=== PATIENT | male | born 1940 | race Caucasian/White ===

== ENCOUNTER 2024-08-23 03:43 | Emergency (ER) | payer OTHER ==
[~2024-08-23] VITALS: Ht 180.3 cm; Wt 80.7 kg
[2024-08-23 03:51] VITALS: BP_SYST 174; PULSE 98; RESP 20; TEMP 98; O2SAT 98
[2024-08-23 04:23] LABS: BASOPHILS % (AUTO) 0.4 % (0.0-2.0); EOSINOPHILS # (AUTO) 0.2 K/uL (0.0-0.4); EOSINOPHILS % (AUTO) 3.7 % (0.0-4.0); HEMATOCRIT 39.9 % (36-54); HEMOGLOBIN 13.6 g/dL (14.0-18.0); LYMPHOCYTES # (AUTO) 0.8 K/uL (1.0-5.5); LYMPHOCYTES % (AUTO) 12.6 % (20.5-51.5); MEAN CORPUSCULAR HEMOGLOBIN 32 pg (27-31); MEAN CORPUSCULAR HGB CONC 34 % (32-36); MEAN CORPUSCULAR VOLUME 94 fL (79.0-98.0); MONOCYTES # (AUTO) 0.7 K/uL (0.0-1.0); MONOCYTES % (AUTO) 10.4 % (1.7-9.3); NEUTROPHILS # (AUTO) 4.7 K/uL (1.8-7.7); NEUTROPHILS % (AUTO) 72.9 % (40.0-70.0); PLATELET COUNT (AUTO) 206 K/uL (130-430); RED BLOOD CELL COUNT(AUTO) 4.25 MIL/uL (4.2-6.2); RED CELL DISTRIBUTION WIDTH 13.5 % (9.0-15.0); WHITE BLOOD COUNT (AUTO) 6.5 K/uL (4.8-10.8)
[2024-08-23 04:53] LABS: ALANINE AMINOTRANSFERASE 26 U/L (12-78); ALBUMIN 3.3 g/dL (3.4-4.8); ANION GAP 9 (5-15); ASPARTATE AMINOTRANSFERASE 51 U/L (10-37); BILIRUBIN,DIRECT 0.2 mg/dL (0.0-0.3); CALCIUM 9.1 mg/dL (8.4-11.0); CARBON DIOXIDE 26 mmol/L (23-29); CHLORIDE 96 mmol/L (98-107); CREATINE KINASE, TOTAL 163 U/L (39-308); CREATININE 1.13 mg/dL (0.55-1.30); GLUCOSE 97 mg/dL (74-106); PHOSPHORUS 3.6 mg/dL (2.7-4.5); POTASSIUM 4.4 mmol/L (3.5-5.1); SODIUM SERUM 131 mmol/L (136-145); THYROID STIMULATING HORMONE 1.62 uIu/mL (0.34-4.82); TOTAL BILIRUBIN 0.7 mg/dL (0.0-1.0); TOTAL PROTEIN, SERUM 6.7 g/dL (6.4-8.3); UREA NITROGEN, BLOOD 18 mg/dL (8-21)
[2024-08-23] MEDS ORDERED: iohexoL 300 mgI/mL, 150 ML INFUS..BTL IV ONE (05:09)
[2024-08-23 06:28] LABS: BILIRUBIN,URINE NEGATIVE (NEGATIVE); BLOOD, URINE NEGATIVE (NEGATIVE); CLARITY/URINE CLEAR (CLEAR); COLOR,URINE YELLOW (YELLOW); GLUCOSE,URINE NEGATIVE (NEGATIVE); KETONES,URINE NEGATIVE (NEGATIVE); LEUKOCYTE ESTERASE ,URINE NEGATIVE (NEGATIVE); NITRITE, URINE NEGATIVE (NEGATIVE); PROTEIN URINE NEGATIVE (NEGATIVE); UROBILINOGEN,URINE 0.2 (0.2-1.0)
[2024-08-23] MEDS ORDERED: LISI40TA13 PO (06:52)
[2024-08-23] MEDS ORDERED: ATOR40TA68 PO (06:52)
[2024-08-23 13:05] VITALS: BP_SYST 160; PULSE 75; RESP 18; TEMP 98.6; O2SAT 96
== END 2024-08-23 11:20 | disposition home or self-care (01) ==
LOC: SED 03:43
DX: C79.49 Secondary malignant neoplasm of other parts of nervous system (principal); R53.1 Weakness; R63.0 Anorexia; I10 Essential (primary) hypertension; E87.1 Hypo-osmolality and hyponatremia; E78.5 Hyperlipidemia, unspecified; R29.6 Repeated falls
CPT/HCPCS: 99285; 70450; 71045; 80076; 80048; 81001; 82550; 83880; 83735; 84100; 84443; 85025; 84484; 36415; 93005; 71260; 74177; 81003; Q9967